=== PATIENT | male | born 1965 | race Two or more races ===

== ENCOUNTER 2020-02-26 12:22 | Emergency (ER) | payer MEDICAID ==
[~2020-02-26] VITALS: Ht 167.6 cm; Wt 83.9 kg
[2020-02-26 14:06] VITALS: BP 144/92
[2020-02-26] MEDS ORDERED: KETOROLAC TROMETH 60MG/2ML VIAL IM ONE (14:45)
== END 2020-02-26 15:24 | disposition home or self-care (01) ==
LOC: ER 12:22
DX: S29.011A Strain of muscle and tendon of front wall of thorax, initial encounter (principal); W01.0XXA Fall on same level from slipping, tripping and stumbling without subsequent striking against object, initial encounter; Y93.89 Activity, other specified; Y92.89 Other specified places as the place of occurrence of the external cause; Y99.8 Other external cause status
CPT/HCPCS: 71101; 96372; 99283; J1885

== ENCOUNTER 2020-02-29 15:32 | Emergency (ER) | payer MEDICAID ==
[~2020-02-29] VITALS: Ht 167.6 cm; Wt 83.9 kg
[2020-02-29 15:43] VITALS: BP 154/92
== END 2020-02-29 16:27 | disposition home or self-care (01) ==
LOC: ER 15:32
DX: B02.9 Zoster without complications (principal)

== ENCOUNTER 2022-11-05 14:20 | Emergency (ER) | payer MEDICAID ==
[~2022-11-05] VITALS: Ht 167.6 cm; Wt 86.3 kg
[2022-11-05 15:32] VITALS: BP 157/96
[2022-11-05] MEDS ORDERED: TETANUS-DIPTH-ACEL PERTUSSIS 0.5ML SYR Tdap IM ONE (15:45)
[2022-11-05] MEDS ORDERED: AMOX500T86 PO (15:58)
== END 2022-11-05 16:05 | disposition home or self-care (01) ==
LOC: ER 14:20
DX: S80.12XA Contusion of left lower leg, initial encounter (principal); S81.852A Open bite, left lower leg, initial encounter; Z79.2 Long term (current) use of antibiotics; W54.0XXA Bitten by dog, initial encounter; Y93.89 Activity, other specified; Y92.89 Other specified places as the place of occurrence of the external cause; Y99.8 Other external cause status
CPT/HCPCS: 90471; 90715

== ENCOUNTER 2023-05-31 00:27 | Emergency (ER) | payer MEDICAID ==
[~2023-05-31] VITALS: Ht 167.6 cm; Wt 84.0 kg
[~2023-05-31 00:27] MED LIST: AMOX500T86 PO
[2023-05-31] MEDS ORDERED: CYCL-837 PO (04:38)
[2023-05-31] MEDS ORDERED: IBUP-1456 PO (04:38)
[2023-05-31] MEDS ORDERED: KETOROLAC TROMETH 60MG/2ML VIAL IM ONE (04:45)
[2023-05-31 05:09] VITALS: BP 129/78; PULSE 78; RESP 16; TEMP 98; O2SAT 94
== END 2023-05-31 05:55 | disposition home or self-care (01) ==
LOC: ER 00:27
DX: S39.012A Strain of muscle, fascia and tendon of lower back, initial encounter (principal); E11.9 Type 2 diabetes mellitus without complications; W18.39XA Other fall on same level, initial encounter; Y93.89 Activity, other specified; Y92.810 Car as the place of occurrence of the external cause; Y99.8 Other external cause status
CPT/HCPCS: 72100; 72220; 96372; 99284; J1885